=== PATIENT | female | born 1950 | race Caucasian/White ===

== ENCOUNTER 2017-06-10 09:27 | Inpatient (IN) | payer OTHER ==
[2017-05-19 11:01] VITALS: Ht 165.1 cm; Wt 93.3 kg
--- NOTE | 2017-05-19 11:23 | PAT Medication Instructions ---
Service Date May 19, 2017. Current Home Medication List Duloxetine Hcl (Cymbalta), 60 MG PO QPM Ergocalciferol (Vitamin D 34228 Unit), 1 CAP PO 2XWK Multivitamin (Multivitamin), 1 TAB PO QAM Medication Instructions For Your Scheduled Surgery - Hold the following medications the morning of surgery: Ergocalciferol (Vitamin D 84202 Unit), 1 CAP PO 2XWK Multivitamin (Multivitamin), 1 TAB PO QAM - Take the following medications as scheduled the night before surgery: Duloxetine Hcl (Cymbalta), 60 MG PO QPM If you have any questions please call us at [phone] or [phone] or [phone]
[2017-05-19 12:20] LABS: HEMATOCRIT 39.4 % (37-47); HEMOGLOBIN 13.9 g/dL (12.0-16.0); IG# 0.01 K/uL (0.00-0.02); LYMPH % 32.4 %; LYMPH ABS # 1.81 K/uL (1.2-3.4); MEAN CELL VOLUME 89.5 fL (80-100); MEAN CORPUSCULAR HEMOGLOBIN 31.6 pg (25-34); MEAN CORPUSCULAR HGB CONC 35.3 g/dl (32-36); MEAN PLATELET VOLUME 9.3 fL (7.4-10.4); MONO % 8.8 %; MONO ABS # 0.49 K/uL (0.11-0.59); NEUT % 58.6 %; NEUT ABS # 3.28 K/uL (1.4-6.5); PLATELET COUNT 308 K/uL (130-400); RED CELL DISTRIBUTION WIDTH CV 12.4 % (11.5-14.5); RED CELL DISTRIBUTION WIDTH SD 40.4 fL (36.4-46.3); WHITE BLOOD COUNT 5.59 K/uL (4.8-10.8)
[2017-05-19 12:22] LABS: CALCIUM 9.3 mg/dl (8.5-10.1); CREATININE 0.99 mg/dl (0.60-1.20); POTASSIUM 4.2 mmol/L (3.5-5.1)
--- NOTE | 2017-05-19 12:30 | DIAGNOSTIC IMAGING REPORT ---
CHEST 2 VIEWS ROUTINE CLINICAL HISTORY: PAT preoperative evaluation COMPARISON STUDY: 03/08/2014 FINDINGS: The bones soft tissues and hemidiaphragms are normal. The cardiomediastinal silhouette is normal. The lungs are clear. The pulmonary vasculature is normal. IMPRESSION: Negative chest. The above report was generated using voice recognition software. It may contain grammatical, syntax or spelling errors. Electronically signed by: Yvegeniy Hussein M.D. 05/19/2017 12:29 PM Dictated Date/Time: 05/19/2017 12:28 PM
[2017-06-10] VITALS (8 sets, daily range): BP systolic 106–181; BP diastolic 66–86; PULSE 54–75; TEMP 36.4–36.6; O2SAT 94–100
[~2017-06-10] VITALS: Ht 165.1 cm; Wt 93.3 kg
[~2017-06-10 09:27] MED LIST: ACETAMINOPHEN 500 MG TAB PO SCH; CEFAZOLIN 2000MG IV PUSH 15 ML IV SCH; CeleBREX 200 MG CAP PO SCH; DULO60CA44 PO; ERGO500037 PO; GABAPENTIN 300 MG CAP PO SCH; LACTATED RINGER'S 1000ML 1,000 ML IV SCH; MULT-506 PO
[2017-06-10] MEDS ORDERED: MIDAZOLAM HCL 1 MG/ML 2ML VIAL ONE (10:55)
[2017-06-10] MEDS ORDERED: FENTANYL CITRATE INJ 50 MCG/1 ML 2 ML VIAL ONE ×4 (10:56→12:55)
[2017-06-10] MEDS ORDERED: ONDANSETRON INJ 2 MG/ML 2 ML VIAL IV PRN ×2 (11:00→13:45)
[2017-06-10] MEDS ORDERED: HYDROmorphone INJ 0.5 MG/0.5 ML SYR IV PRN (11:00)
[2017-06-10] MEDS ORDERED: FENTANYL CITRATE INJ 50 MCG/1 ML 2 ML VIAL IV PRN (11:00)
[2017-06-10] MEDS ORDERED: ATROPINE SULFATE 0.1 MG/ML 5ML SYR IV PRN (11:00)
[2017-06-10] MEDS ORDERED: MEPERIDINE HCL 25 MG/ML CARP IV PRN (11:00)
[2017-06-10] MEDS ORDERED: EpHEDrine SULFATE INJ 50 MG/ML AMP IV PRN (11:00)
[2017-06-10] MEDS ORDERED: LABETALOL HCL IV 5 MG/ML 20ML IV PRN (11:00)
--- NOTE | 2017-06-10 11:08 | History & Physical Bridge Note ---
H&P Re-Evaluation Bridge Note: I have examined the patient, reviewed the History & Physical and in the interval since the performance of the History & Physical I have noted the following changes of clinical significance: No changes noted
--- NOTE | 2017-06-10 11:09 | History and Physical ---
History & Physical Date Jun 10, 2017. Chief Complaint Back and leg pain History of Present Illness The patient is a 66 year old female with complaints of back and leg pain Additional History Hepatic Disease: No Endocrine Disorder: No Kidney Disease: No Hypertension: No Heart Disease: No Bleeding Tendencies: No Infectious Diseases: No Allergies Coded Allergies: BEE STING (Verified Allergy, Severe, SWELLING, HIVES, 06/10/17) NO KNOWN DRUG ALLERGIES (Verified Allergy, Unknown, , 06/10/17) Home Medications Scheduled Duloxetine Hcl (Cymbalta), 60 MG PO QPM Ergocalciferol (Vitamin D 36287 Unit), 1 CAP PO 2XWK Multivitamin (Multivitamin), 1 TAB PO QAM Physical Examination Skin: warm/dry, no rash Eyes: normal inspection, EOMI, sclerae normal ENT: normal ENT inspection, pharynx normal Head: normocephalic, atraumatic Neck: supple, no adenopathy, trachea midline Respiratory/Chest: lungs clear, normal breath sounds, no respiratory distress Cardiovascular: regular rate, rhythm, no edema, no murmur Abdomen / GI: normal bowel sounds, non tender Back: normal inspection Extremities: normal inspection, normal range of motion Neurologic/Psych: no motor/sensory deficits, alert, normal reflexes, oriented x 3 Diagnosis Lumbar spinal stenosis Plan of Treatment Removal of hardware L3-L5, decompression L1-L3 fusion L1-L5 with possible T12-L5
[2017-06-10] MEDS ORDERED: BUPIVACAINE/EPINEPHRINE 0.5% MPF 1:200,000 30 ML VIAL ONE (11:12)
[2017-06-10] MEDS ORDERED: BACITRACIN 50000 UNIT VIAL ONE (11:12)
[2017-06-10] MEDS ORDERED: HYDROmorphone INJ 2 MG/ML SYR/VIAL ONE ×2 (11:58→13:39)
[2017-06-10] MEDS ORDERED: LIDOCAINE HCL 2% 2 ML VIAL (20MG/ML) ONE (12:38)
[2017-06-10] MEDS ORDERED: DEXAMETHASONE SOD INJ 4 MG/ML VIAL ONE (12:38)
[2017-06-10] MEDS ORDERED: ROCURONIUM BROMIDE 10 MG/ML 5 ML VIAL IV ONE (12:38)
[2017-06-10] MEDS ORDERED: PROPOFOL IV EMULSION 10 MG/ML 20 ML VIAL IV ONE (12:38)
[2017-06-10] MEDS ORDERED: FLOSEAL HEMOSTATIC MATRIX 10ML TOP ONE (13:25)
--- NOTE | 2017-06-10 13:36 | [facility] Operative Report ---
Operative Report Operative Date Jun 10, 2017. Pre-Operative Diagnosis SPINAL STENOSIS Post-Operative Diagnosis SAME PREOP Procedure(s) Performed 1. Removal of posterior instrumentation L3-4 L4-5. #2 expiration fusion L3-4 L4-5. #3 lumbar decompression medial facetectomies foraminotomies L1-L2 3. #4 posterior spinal fusion L1-L2 3. #5 placement posterior segmental instrumentation L1-L4. #6 interbody fusion L2-3. #7 placement peek cage 12 x 26 mm at L2-3. #8 placement of locally harvested Troncoso's Artegraft in the posterior lateral gutters. #9 placement of infuse collagen sponge Bymaster graft in the posterior lateral gutters and ostial amp bone graft in the interbody space. Surgeon DR. Criss RAMOS Special Education Educational Assistant Surgeon(ktah ZAMORA PAC Estimated Blood Loss 200ml Findings Severe spinal stenosis Specimens REMOVED SPINE HARDWARE Anesthesia Type General Description of Procedure Patient was met with preoperatively case discussed all questions addressed. After informed consent obtained patient was taken to the operative suite underwent intubation and placed in a prone position on the Geoffrey table on top of the Kiel frame. All bony prominences well-padded eyes inspected to ensure no external pressure placed upon the. This point the lumbar spine was prepped and draped in the normal sterile fashion. Sharp dissection with the assistance of Bovie cautery was performed down to and exposing the lamina and transverse processes of L1 and L2 and the instrumentation at L3-L4 5 bilaterally. Then proceeded with hardware L3-L4-L5 bilaterally explain the fusion mass noting it to be intact. I then performed a complete laminectomy of L2 and L1 from a caudal to cephalad fashion addressing severe central lateral recess stenosis. Pedicle screws were placed in L1 L2-L3-L4 bilaterally with the assistance of fluoroscopy and the purposes jose enrique placed. Through a transforaminal approach on the right a complete discectomy of L2 through was performed endplates curetted to subcortical bleeding bone and a 12 x 26 mm peek cage filled with ostium bone graft tapped in position. The rods were then locked in final position bilaterally. Transverse processes of L1 L2-L3-L4 burred to subcortical bleeding bone. Infuse collagen sponge mass graft and locally harvested Troncoso's allograft placed the posterior gutters. A 15 round RAS drain inserted. Incision closed with 1 Vicryl fascia 2-0 Vicryl subtends a 4 Monocryl fashion closure Steri-Strips sterile dressings placed. Patient will continue to PACU stable discrete please note Marita Bradshaw present throughout the entire procedure involved the patient positioning complex portions of the surgery and fashion closure. I attest to the content of the Intraoperative Record and any orders documented therein. Any exceptions are noted below.
[2017-06-10] MEDS ORDERED: SODIUM CHLORIDE 0.9% 1000ML 1,000 ML IV SCH (13:37)
[2017-06-10] MEDS ORDERED: NEOSTIGMINE METHYLSULFATE 1 MG/ML 10ML VIAL ONE (13:40)
[2017-06-10] MEDS ORDERED: KETOROLAC TROMETHAMINE 30 MG/ML VIAL ONE (13:40)
[2017-06-10] MEDS ORDERED: ONDANSETRON INJ 2 MG/ML 2 ML VIAL ONE (13:40)
[2017-06-10] MEDS ORDERED: GLYCOPYRROLATE INJ 0.2 MG/ML VIAL ONE (13:40)
[2017-06-10] MEDS ORDERED: SOD PHOSPHATE/SOD BIPHOSPHATE ENEMA 132 ML BTL PR PRN (13:45)
[2017-06-10] MEDS ORDERED: METOCLOPRAMIDE HCL INJ 5 MG/ML 2 ML VIAL IV PRN (13:45)
[2017-06-10] MEDS ORDERED: ACETAMINOPHEN IV 100 ML IV PRN (13:45)
[2017-06-10] MEDS ORDERED: ACETAMINOPHEN 500 MG TAB PO PRN (13:45)
[2017-06-10] MEDS ORDERED: LORAZEPAM INJ 0.5 MG in SYRINGE 0 ML IV PRN (13:45)
[2017-06-10] MEDS ORDERED: DO NOT ADMINISTER PNEUMOCOCCAL VACCINE PRN (13:45)
[2017-06-10] MEDS ORDERED: MAGNESIUM HYDROXIDE SUSP 30 ML UDC PO PRN (13:45)
[2017-06-10] MEDS ORDERED: LORAZEPAM 0.5 MG TAB PO PRN (13:45)
[2017-06-10] MEDS ORDERED: NALOXONE HCL 0.4 MG/1 ML VIAL/CARP IV PRN ×2 (13:45)
[2017-06-10] MEDS ORDERED: ALUMINUM/MAGNESIUM SUSP 30 ML UDC PO PRN (13:45)
[2017-06-10] MEDS ORDERED: hydrOXYzine HCL 25 MG TAB PO PRN (13:45)
[2017-06-10] MEDS ORDERED: BISACODYL 10 MG SUPP PR PRN (13:45)
[2017-06-10] MEDS ORDERED: FAMOTIDINE 20 MG TAB PO PRN (13:45)
[2017-06-10] MEDS ORDERED: PROMETHAZINE HCL INJ 12.5 MG in SODIUM CHLORIDE 0.9% 50ML 50 ML IV PRN (13:45)
[2017-06-10] MEDS ORDERED: DO NOT ADMINISTER FLU VACCINE PRN (13:45)
[2017-06-10] MEDS ORDERED: ESMOLOL HCL 10 MG/ML 10 ML VIAL ONE (13:49)
--- NOTE | 2017-06-10 14:00 | DIAGNOSTIC IMAGING REPORT ---
LUMBAR SPINE, INTRAOPERATIVE FLUOROSCOPY HISTORY: L3-L5 decompression. L1 L4 fusion.. FLUOROSCOPY TIME: 15 seconds. FINDINGS: Intraoperative fluoroscopy was provided for the lumbar spine. 3 fluoroscopic spot images were obtained. Posterior decompression fusion from L1 through L4 with pedicle screws and rods. The hardware appears intact. IMPRESSION: Fluoroscopy provided for a L1-L4 posterior fusion.. Electronically signed by: Wilmar Street M.D. 06/10/2017 1:59 PM Dictated Date/Time: 06/10/2017 1:58 PM
[2017-06-10] MEDS ORDERED: HYDROmorphone HCL 0.5MG/ML 50 ML CASSETTE ONE (14:02)
[2017-06-10] MEDS: HYDROmorphone HCL 0.5MG/ML 50 ML CASSETTE IV PRN ×2 (14:53→23:16)
--- NOTE | 2017-06-10 15:02 | Anesthesiology Progress Note ---
Anesthesia Post Op Note Date & Time Jun 10, 2017 at 15:02 Vital Signs Pain Intensity: 2.0 Vital Signs Past 12 Hours Date Time Temp Pulse Resp B/P (MAP) Pulse Ox O2 Delivery O2 Flow Rate FiO2 06/10/17 14:57 100 Nasal Cannula 4.0 06/10/17 14:35 62 14 142/65 97 Nasal Cannula 4 06/10/17 14:25 36.6 64 13 142/72 97 Nasal Cannula 4 06/10/17 14:15 74 16 143/73 99 Oxymask 10 06/10/17 14:05 80 18 139/81 99 Oxymask 10 06/10/17 13:55 36.4 82 15 175/88 99 Oxymask 10 06/10/17 09:57 36.6 73 18 181/86 96 Room Air Notes Mental Status: alert / awake / arousable, participated in evaluation Pt Amnestic to Procedure: Yes Nausea / Vomiting: adequately controlled Pain: adequately controlled Airway Patency, RR, SpO2: stable & adequate BP & HR: stable & adequate Hydration State: stable & adequate Anesthetic Complications: no major complications apparent
[2017-06-10] MEDS: SODIUM CHLORIDE 0.9% 1000ML 1,000 ML IV SCH ×2 (15:48→21:54)
[2017-06-10] MEDS: CEFAZOLIN IV 2,000 MG in SYRINGE 0 ML IV SCH (19:54)
[2017-06-10] MEDS: DULOXETINE HCL 60 MG CAP PO SCH (20:32)
[2017-06-10] MEDS: DOCUSATE SODIUM/SENNA 50/8.6MG TAB PO SCH (20:32)
[2017-06-11] VITALS (7 sets, daily range): BP systolic 115–176; BP diastolic 71–82; PULSE 70–76; TEMP 36.3–36.9; O2SAT 92–96
[2017-06-11] MEDS: SODIUM CHLORIDE 0.9% 1000ML 1,000 ML IV SCH (01:36)
[2017-06-11] MEDS: CEFAZOLIN IV 2,000 MG in SYRINGE 0 ML IV SCH (01:37)
[2017-06-11 05:59] LABS: HEMATOCRIT 32.1 % (37-47); HEMOGLOBIN 10.8 g/dL (12.0-16.0); IG# 0.04 K/uL (0.00-0.02); LYMPH % 7.5 %; LYMPH ABS # 0.93 K/uL (1.2-3.4); MEAN CELL VOLUME 90.7 fL (80-100); MEAN CORPUSCULAR HEMOGLOBIN 30.5 pg (25-34); MEAN CORPUSCULAR HGB CONC 33.6 g/dl (32-36); MEAN PLATELET VOLUME 9.3 fL (7.4-10.4); MONO % 5.8 %; MONO ABS # 0.71 K/uL (0.11-0.59); NEUT % 86.4 %; NEUT ABS # 10.64 K/uL (1.4-6.5); PLATELET COUNT 293 K/uL (130-400); RED CELL DISTRIBUTION WIDTH CV 12.1 % (11.5-14.5); RED CELL DISTRIBUTION WIDTH SD 40.8 fL (36.4-46.3); WHITE BLOOD COUNT 12.32 K/uL (4.8-10.8)
[2017-06-11] MEDS ORDERED: OXYCODONE HCL IR 5 MG TAB (IMMEDIATE RELEASE) PO PRN (06:00)
[2017-06-11] MEDS ORDERED: DC PCA SCH (06:00)
[2017-06-11] MEDS ORDERED: HYDROmorphone INJ 0.5 MG/0.5 ML SYR IV PRN (06:01)
[2017-06-11] MEDS ORDERED: NURSING DECISION MEDICATION ORDER SCH (06:15)
--- NOTE | 2017-06-11 06:26 | Clinical Documentation Query ---
KETAN Jones : CLINICAL DOCUMENTATION QUERY Patient is a 66 year old female who on 06/10 underwent posterior lumbar decompression and fusion. EBL for the procedure was 200 ml's with and additional 335 ml's subsequent to this via hemovac. Preoperative H&H was 13.9 g/dl and 39.4%. POD #1, values are 10.8 g/dl and 32.1%. Additionally, net I/O is positive for 2,700 ml's at this time. She is being monitored with serial hematology and I/O including hemovac outputs. As appropriate, consider documentation as suggested below. Thank you. In your clinical opinion is this patient being managed for: ( ) Acute blood loss and hemodilutional anemia ( ) Not Agree ( ) Other explanation of clinical findings (Please Explain) ( ) Unable to determine (Please Define) ( ) Need to Discuss The medical record reflects the following clinical findings, treatment, and risk factors. Clinical Indicators: As above Treatment: Serial hematology, I/O including drain outputs. Risk Factors: Acute perioperative blood losses, IVF administration. Please clarify and document your clinical opinion in the progress notes and discharge summary. Terms such as "probable", "suspected", "likely", "questionable", "possible", or "still to be ruled out" are acceptable. IF IN AGREEMENT, YOU MUST DOCUMENT ABOVE DIAGNOSTIC STATEMENT IN DAILY PROGRESS NOTES AND DISCHARGE SUMMARY. This document is not part of the patient's record. Thank You, Cecil Nichols, RN [phone]
[2017-06-11 06:35] LABS: CALCIUM 7.9 mg/dl (8.5-10.1); CREATININE 0.94 mg/dl (0.60-1.20); POTASSIUM 4.3 mmol/L (3.5-5.1)
[2017-06-11] MEDS ORDERED: KETOROLAC TROMETHAMINE 15 MG/ML VIAL IV. PRN (08:00)
--- NOTE | 2017-06-11 08:46 | Anesthesiology Progress Note ---
Anesthesia Post Op Note Date & Time Jun 11, 2017 at 08:45 Vital Signs Pain Intensity: 5.0 Vital Signs Past 12 Hours Date Time Temp Pulse Resp B/P (MAP) Pulse Ox O2 Delivery O2 Flow Rate FiO2 06/11/17 08:00 Room Air 06/11/17 07:35 36.9 70 16 146/74 (98) 95 Room Air 06/11/17 03:25 36.5 76 17 115/71 (86) 95 Room Air 06/10/17 23:37 Room Air 06/10/17 23:26 36.6 65 16 106/66 (79) 95 Room Air Notes Mental Status: alert / awake / arousable, participated in evaluation Pt Amnestic to Procedure: Yes Nausea / Vomiting: adequately controlled Pain: adequately controlled Airway Patency, RR, SpO2: stable & adequate BP & HR: stable & adequate Hydration State: stable & adequate Anesthetic Complications: no major complications apparent
--- NOTE | 2017-06-11 10:26 | Progress Note ---
Progress Note Date of Service Jun 11, 2017. Progress Note Patient's back pain is controlled leg pain markedly improved. Vital signs stable. On exam she is excellent strength testing appears comfortable. Assessment status post lumbar decompression fusion. Plan at this time will initiate physical therapy advance her bowel regimen anticipate home this weekend.
[2017-06-11] MEDS: DOCUSATE SODIUM/SENNA 50/8.6MG TAB PO SCH (21:02)
[2017-06-11] MEDS: DULOXETINE HCL 60 MG CAP PO SCH (21:02)
[2017-06-11] MEDS: POLYETHYLENE (MIRALAX) 17 GM PACK PO SCH (23:52)
[2017-06-12 08:00] VITALS: BP 140/86; PULSE 71; TEMP 36.8; O2SAT 96
[2017-06-12 08:17] VITALS: O2SAT 96
[2017-06-12] MEDS ORDERED: RXC5 PO (10:24)
--- NOTE | 2017-06-12 10:24 | Discharge Instructions ---
Discharge Instructions Date of Service Jun 12, 2017. Admission Reason for Admission: Lumbar Spinal Stenosis Discharge Discharge Diagnosis / Problem: lumbar stenosis Discharge Goals Goal(s): Improve function Activity Recommendations Activity Limitations: per Instructions/Follow-up section . Instructions / Follow-Up Instructions / Follow-Up ACTIVITY RECOMMENDATIONS: SELF CARE INSTRUCTIONS AFTER THORACIC/LUMBAR FUSIONS 1. You may walk to your tolerance. It is good exercise for your legs and back. Expect some back and intermittent leg aches and pains. 2. You may perform "counter-top" level activities (make a sandwich, zac with a project, etc.). 3. No bending or lifting of more than 10 pounds or back twisting of any nature (roll like a log when turning in bed). 4. You may ride in a car for 20-30 minutes at a time. No driving until after your first visit with your doctor. 5. Frequent changes of position and restricting sitting to 30 minutes at a time will help limit the amount of back spasms and stiffness you may experience. 6. You may discontinue the use of ambulatory aids (cane, crutches, etc.) once your strength and confidence allow. 7. You may jumpbasting facing baster the shower and let water strike your incision when you arrive home at least once daily. Do not take a tub bath, sit in a hot tub or go into a swimming pool until after your first recheck in the office. SPECIAL CARE INSTRUCTIONS: VERY IMPORTANT TO READ AND REVIEW A. Your surgical incision has been closed with a cosmetic suture under the skin that will dissolve in about 6 weeks. In 14 days, you can use a pair of clean scissors and cut the suture that is left outside of the skin at the ends of your incision. 1. The small skin tapes can be removed 7 days after surgery if they have not fallen off by that point. 2. You may keep the wound open to air as much as possible to promote healing after post-op day number 5 unless told otherwise by your doctor. 3. If you think the wound looks like it is becoming infected (redness or worsening drainage) and/or you are experiencing fever, chill or worsening back pain and muscle spasms, contact the office so that we may evaluate you as soon as possible. B. Complications are uncommon, but please contact us if you have any signs or symptoms of: 1. wound infection (fever higher than 102.5 degrees F, redness, separation of wound, drainage, or increasing pain from the incision) 2. blood clots in legs (pain, swelling, redness and warmth in legs) 3. urinary tract infection (fever higher than 102.5 degrees F, burning upon urination or increased frequency of urination) 4. nerve problems (inability to walk on your toes or heels, numbness, loss of bowel or bladder control) 5. any other symptoms that concern you C. Please call the office at if you have any concerns or questions about your operation or recovery. D. No smoking! Smoking drastically decreases the chance of a solid fusion. E. Do not take any anti-inflammatory medications (Indocin, Advil, Motrin, Aspirin, Naprosyn, etc.) as these may inhibit the chance of a solid fusion. Tylenol is okay to take for pain. MANAGING PAIN AFTER SPINAL SURGERY 1. Narcotic medication is intended for short-term use and will be provided for surgical pain. Surgical pain usually lasts for a period of 4-6 weeks. Narcotic medication includes Percocet, Vicodin, Darvocet, Tylenol #3 or Lortab. 2. Longer-term pain is more appropriately treated with non-narcotic medication such as Tylenol ES. 3. Muscle spasm is not appropriately treated with narcotics. Muscle relaxers such as Soma, Flexeril or Skelaxin can be used along with Tylenol ES. 4. Remember that we all live with some "aches and pains". This is not unusual or uncommon after an injury or as we get older. a. Back pain is expected and may include muscle spasms for 4 to 6 weeks after surgery. The pain should gradually improve. If the pain worsens for no apparent reason, please contact the office. b. Intermittent leg pain may also be experienced and should not be concerned about unless it worsens for no apparent reason. If so, please contact the office. 5. We will provide appropriate medication within the normal guidelines of their prescribed use. We will also be very cautious and aware of potential abuse and extended duration of patients' medication needs. a. Pain medications are for your comfort and to assist with sleep and rest so that the tissue can heal. They are not provided in order to return to normal activity and should not be used through the day. To do so or worsening pain at night can result from ongoing tissue damage and development of tolerance to the prescribed medicine. 6. Please allow 2-3 days to process refills. Prescriptions will not be mailed but must be picked up at the office. FOLLOW UP VISIT: Keep your scheduled follow-up appointment. Any questions, please call the office at . Current Hospital Diet Patient's current hospital diet: Regular Diet Discharge Diet Recommended Diet: Regular Diet Procedures Procedures Performed: 1. Removal of posterior instrumentation L3-4 L4-5. #2 expiration fusion L3-4 L4-5. #3 lumbar decompression medial facetectomies foraminotomies L1-L2 3. #4 posterior spinal fusion L1-L2 3. #5 placement posterior segmental instrumentation L1-L4. #6 interbody fusion L2-3. #7 placement peek cage 12 x 26 mm at L2-3. #8 placement of locally harvested Troncoso's Artegraft in the posterior lateral gutters. #9 placement of infuse collagen sponge Bymaster graft in the posterior lateral gutters and ostial amp bone graft in the interbody space. Pending Studies Studies pending at discharge: no Medical Emergencies . Who to Call and When: Medical Emergencies: If at any time you feel your situation is an emergency, please call 911 immediately. . Non-Emergent Contact Non-Emergency issues call your: Primary Care Provider . "Provider Documentation" section prepared by Freddy Duque. .
[2017-06-12] MEDS: POLYETHYLENE (MIRALAX) 17 GM PACK PO SCH (12:00)
[2017-06-12 13:01] VITALS: BP 140/86; PULSE 71; TEMP 36.8; O2SAT 96
--- NOTE | 2017-06-12 13:21 | Discharge Summary ---
Orthopedic Discharge Summary Admission Date/Reason Jun 10, 2017 at 11:30 Lumbar Spinal Stenosis. Discharge Date/Disposition Jun 12, 2017 Home Diagnosis Principal Diagnosis: Lumbar spinal stenosis Admission Physical Exam As per Admitting History & Physical. Hospital Course Patient underwent lumbar decompression and fusion tolerated this well was taken to the orthopedic floor postoperatively. Postop day #1 she was up and amatory leg symptoms improved progressed a postop day #2 subsequently postop day #3 was discharged home. Discharge orders and instructions found in the chart for further review. Discharge Instructions Please refer to the electronic Patient Visit Report (Discharge Instructions) for additional information.
== END 2017-06-12 13:16 | disposition home or self-care (01) | DRG 455 ==
LOC: C.ACU 09:27 → C.3E 11:30 → MERGE 13:51 → ENRESERV 14:27
PROVIDERS: ADMIT Orthopaedic Surgery Orthopaedic Surgery of the Spine; ATTEND Orthopaedic Surgery Orthopaedic Surgery of the Spine
PROC: 0SG00AJ Fusion of Lumbar Vertebral Joint with Interbody Fusion Device, Posterior Approach, Anterior Column, Open Approach (ICD-10-PCS; principal; 2017-06-10 12:15)
PROC: 0SG10K1 Fusion of 2 or more Lumbar Vertebral Joints with Nonautologous Tissue Substitute, Posterior Approach, Posterior Column, Open Approach (ICD-10-PCS; principal; 2017-06-10 12:15)
PROC: 0ST20ZZ Resection of Lumbar Vertebral Disc, Open Approach (ICD-10-PCS; principal; 2017-06-10 12:15)
DX: M48.061 Spinal stenosis, lumbar region without neurogenic claudication (principal); Z79.899 Other long term (current) drug therapy; Z91.030 Bee allergy status